=== PATIENT | male | born 1955 | race Caucasian/White ===

== ENCOUNTER → 2016-12-31 | Outpatient (CLI) | payer BC ==
[2016-12-31 08:03] LABS: LYMPH # 2.4 K/mm3 (0.7-4.5); LYMPH % 24.6 % (10-50)
[2016-12-31 10:32] LABS: BUN 18 mg/dL (7-18); PROSTATE-SPECIFIC AG SCREEEN 1.4 ng/mL (0.0-4.0)
[2016-12-31 10:38] LABS: GFR (ESTIMATED) 86 ML/MIN (>60)
== END ==
LOC: LAB 07:18
PROVIDERS: Family Medicine
DX: I10 Essential (primary) hypertension (principal); E78.5 Hyperlipidemia, unspecified; M19.90 Unspecified osteoarthritis, unspecified site
CPT/HCPCS: G0103